=== PATIENT | male | born 1935 | race Caucasian/White ===

== ENCOUNTER 2016-08-24 10:40 | Emergency (ER) | payer MEDICARE, OTHER ==
[~2016-08-24] VITALS: Ht 198.1 cm; Wt 108.0 kg
[~2016-08-24 10:40] MED LIST: ALPH200C3 PO; ATOR10TA PO; CIAL5TAB PO; FAMO20 PO; LEVO.1 PO; MOBI15TA PO; ZOLP10TA3 PO
[2016-08-24 10:41] VITALS: BP 154/41; PULSE 66; RESP 17; TEMP 98.2; O2SAT 97
[2016-08-24] MEDS ORDERED: DOXY1CAP74 PO (10:59)
[2016-08-24] MEDS ORDERED: GUAI1SOL7 PO (10:59)
[2016-08-24] MEDS ORDERED: VENTAER INH (11:12)
[2016-08-24 11:16] VITALS: BP 140/88; PULSE 63; RESP 18; O2SAT 98
--- NOTE | 2016-08-24 11:18 | PD ---
HPI Chief Complaint: Respiratory Distress Time Seen by Provider: 10:55 Travel History International Travel<30 days: No Contact w/Intl Traveler<30days: No Traveled to known affect area: No History of Present Illness HPI This patient complains of having a presyncopal episode yesterday. His physician coverage called in a prescription for a cough syrup with codeine as well as doxycycline. He is been having some bronchitis-like symptoms. Within 20 minutes of taking the medications he felt dizzy and lightheaded and generalized weakness. He did not have syncope. Symptoms Resolved on their own. This morning he feels fine. But now is hesitant to take any more the medication. No fever or shortness of breath. PFSH Past Medical History Cancer: Yes (SKIN ) COPD: Yes Genitourinary: Yes (BPH) Respiratory: Yes Immunizations Current: Yes Pneumonia: Yes Past Surgical History Abdominal Surgery: Yes (COLON RESECTION ) Appendectomy: Yes Neurologic Surgery: Yes (SUBDURAL HEMATOMA) Tonsillectomy: Yes Social History Alcohol Use: No Tobacco Use: No Substance Use: No Allergies-Medications (Allergen,Severity, Reaction): Coded Allergies: No Known Allergies (Verified , 08/24/16) Reported Meds & Prescriptions Reported Meds & Active Scripts Active Ventolin Hfa 18 GM Inh (Albuterol Sulfate) 90 Mcg/Act Aer 1 Puff INH Q4H PRN Reported Synthroid 100 mcg (Levothyroxine Sodium) 100 Mcg Tab 50 Mcg PO DAILY Mobic (Meloxicam) 15 Mg Tab 15 Mg PO DAILY Pepcid 20 Mg Tab (Famotidine) 20 Mg Tab 10 Mg PO DAILY Cialis (Tadalafil) 5 Mg Tab 5 Mg PO DAILY Alpha Lipoic Acid (Lipoic Acid) 200 Mg Cap 100 Mg PO BID Atorvastatin 10 mg (Atorvastatin Calcium) 10 Mg Tab 1 Tab PO DAILY Review of Systems General / Constitutional: No: Fever HENT: Positive: Congestion Cardiovascular: No: Chest Pain or Discomfort Respiratory: Positive: Cough Musculoskeletal: Positive: Weakness Physical Exam Narrative GENERAL: Well-nourished, well-developed patient in no apparent distress. SKIN: Focused skin assessment reveals no rash and nodules. Skin is Warm and dry. HEAD: Atraumatic. Normocephalic. EYES: Pupils equal and round. No scleral icterus. No injection or drainage. ENT: No nasal bleeding or discharge. Mucous membranes pink and moist. NECK: Trachea midline. No JVD. CARDIOVASCULAR: Regular rate and rhythm. No murmur appreciated. RESPIRATORY: No accessory muscle use. Clear to auscultation. Breath sounds equal bilaterally. GASTROINTESTINAL: Abdomen soft, non-tender, nondistended. Hepatic and splenic margins not palpable. MUSCULOSKELETAL: No obvious deformities. No clubbing. No cyanosis. No edema. NEUROLOGICAL: Awake and alert. No obvious cranial nerve deficits. Motor grossly within normal limits. Normal speech. PSYCHIATRIC: Appropriate mood and affect; insight and judgment normal. Data Data Last Documented VS Vital Signs Date Time Temp Pulse Resp B/P Pulse Ox O2 Delivery O2 Flow Rate FiO2 08/24/16 10:41 98.2 66 17 154/41 97 MDM Medical Decision Making Medical Screen Exam Complete: Yes Emergency Medical Condition: Yes Medical Record Reviewed: Yes Differential Diagnosis Medication side effect, vasovagal episode, cardiac arrhythmia Narrative Course I have reviewed the patient's electronic medical record. Patient is now asymptomatic with normal exam and normal vital signs Blood pressure 140s over 80s He doesn't want extensive testing done. I don't feel it's really important to do so at this point. Unclear if he had an adverse reaction to the codeine containing cough syrup. I doubt it was to the antibiotic. However he likely has a viral bronchitis and there is no indication for antibiotics at this time. I'm going to recommend he stop both of those medications. I think his symptoms will resolve without any specific treatment. I did prescribe an albuterol inhaler to use as needed for his cough and congestion which was his chief complaint The patient was advised to follow up with their physician and return if they worsen. Diagnosis Primary Impression: Pre-syncope Additional Impression: Adverse effects of medication Qualified Code: T88.7XXA - Adverse effects of medication, initial encounter Additional Instructions: The patient was advised to follow up with their physician and return if they worsen. Med/Other Pt SpecificInfo: Prescription(s) given Scripts Albuterol 18 GM Inh (Ventolin Hfa 18 GM Inh)90 Mcg/Act Aer1 Puff INH Q4H PRN ( SHORTNESS OF BREATH) #1 INHALER Ref 0 Prov:Rolando Cedillo MD 08/24/16 Disposition: 01 DISCHARGE HOME Condition: Stable Rolando Cedillo MD Aug 24, 2016 11:18
== END 2016-08-24 11:28 | disposition home or self-care (01) ==
LOC: NEPD 10:40
DX: R55 Syncope and collapse (principal); T50.905A Adverse effect of unspecified drugs, medicaments and biological substances, initial encounter; R05 Cough; R42 Dizziness and giddiness; Y92.9 Unspecified place or not applicable; J44.9 Chronic obstructive pulmonary disease, unspecified
CPT/HCPCS: 99283